=== PATIENT | female | born 1955 | race Caucasian/White ===

== ENCOUNTER 2020-03-01 10:22 | Observation (INO) ==
[2020-03-01] MEDS ORDERED: ANCEF 1 GRAM IV PREMIX* 2 G/100 ML BAG IV ONE (10:28)
[2020-03-01] MEDS ORDERED: LR 1000 ML IV 1,000 ML IV ONE (10:28)
[2020-03-01] MEDS ORDERED: NAROPIN 0.75% EPI ONE (10:32)
[2020-03-01] MEDS ORDERED: FENTANYL INJ 250 mcg ONE (10:33)
[2020-03-01 10:50] VITALS: BMI 36.6
[2020-03-01] MEDS ORDERED: MARCAINE 0.25% INJ ONE (10:55)
[2020-03-01] MEDS ORDERED: NEOSTIGMINE INJ ONE (11:05)
[2020-03-01] MEDS ORDERED: VERSED ONE (11:05)
[2020-03-01] MEDS ORDERED: DIPRIVAN VIAL ONE (11:05)
[2020-03-01] MEDS ORDERED: XYLOCAINE 2 % (PLAIN) ONE (11:05)
[2020-03-01] MEDS ORDERED: TORADOL 30 MG VIAL ONE (11:05)
[2020-03-01] MEDS ORDERED: NORCURON INJ 10 MG VIAL ONE (11:05)
[2020-03-01] MEDS ORDERED: QUELICIN (OR ANECTINE) ONE (11:05)
[2020-03-01] MEDS ORDERED: NS IRRIGATION* 1,000 ML ONE (13:42)
[2020-03-01] MEDS ORDERED: PHENERGAN INJ 25 MG IM PRN (13:44)
[2020-03-01] MEDS ORDERED: BENADRYL INJ 50 MG VIAL IVP PRN (13:44)
[2020-03-01] MEDS ORDERED: REGLAN INJ 10 MG VIAL IVP PRN (13:44)
[2020-03-01] MEDS ORDERED: DILAUDID INJ IVP PRN ×2 (13:44→13:55)
[2020-03-01] MEDS ORDERED: ZOFRAN INJ 4 MG VIAL IVP PRN (13:44)
[2020-03-01] MEDS ORDERED: PERCOCET TAB 5/325 MG PO PRN (13:55)
[2020-03-01] MEDS: NS 1000 ML 1,000 ML IV SCH (17:38)
[2020-03-01] MEDS: PriLOSEC PO SCH (21:07)
[2020-03-02] MEDS: NS 1000 ML 1,000 ML IV SCH (05:00)
--- NOTE | 2020-03-02 07:35 | NOTE.SOAPO ---
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 Alert and Oriented x 4. No Nausea/Vomiting. on potty chair this am. No Bleeding with ex fix. block seems to still be intact. no motor to toes. Objective Data Objective Data: no motor to toes. no feeling to toes yet. CFT instant. foot rectus. frame stable. Assessment Assessment: S/P LLE talectomy with external fixator application. Plan: patient ok for partial WB up to 50% on frame with assistive device. she will work with PT later today when block off for this. she is currently transferring to bedside commode fine. I feel she will do fine at home and has walker and wheelchair. she will follow up with me outpatient. I have placed RX on the chart for Percocet, Zofran and ASA. no wound care needed at home and will keep ex fix dry and follow up next week.
[2020-03-02 08:26] VITALS: BP 145/79
[2020-03-02] MEDS: PriLOSEC PO SCH (10:24)
== END 2020-03-02 15:40 | disposition home health service (06) ==
LOC: MED/SURG 10:22 → SURG1 10:22
PROVIDERS: ADMIT Obstetrics & Gynecology Obstetrics; ATTEND Obstetrics & Gynecology Obstetrics
DX: M21.542 Acquired clubfoot, left foot; K21.9 Gastro-esophageal reflux disease without esophagitis; M24.572 Contracture, left ankle; Z20.828 Contact with and (suspected) exposure to other viral communicable diseases